=== PATIENT | male | born 1950 | race Caucasian/White ===

== ENCOUNTER → 2017-05-12 | Outpatient (CLI) | payer MEDICARE, OTHER ==
--- NOTE | 2017-05-12 14:30 | RAD ---
Right elbow, 3 views, 05/12/2017: History: Elbow pain No fracture or dislocation is identified. There is mild spurring arising from the coronoid process of the proximal ulna. No joint effusion is evident. IMPRESSION: No acute bony abnormality is detected.
== END | disposition home or self-care (01) ==
LOC: DXRADRC 10:40
PROVIDERS: ATTEND Physician Assistant Medical
DX: M25.521 Pain in right elbow (principal)
CPT/HCPCS: 73080

== ENCOUNTER → 2017-08-04 | Outpatient (CLI) | payer MEDICARE, OTHER ==
--- NOTE | 2017-08-04 09:12 | RAD ---
Chest, 2 views, 08/04/2017: History: Nonproductive cough and sinus congestion Comparison is made to a study from 12/10/2016. The heart size and pulmonary vascularity are normal. There are calcified nodes at the right hilum. No acute infiltrate is seen. There is no evidence of pleural fluid. Moderate scattered spurs are present in the spine. IMPRESSION: No acute cardiopulmonary abnormality is detected.
== END | disposition home or self-care (01) ==
LOC: DXRADRC 07:28
PROVIDERS: ATTEND Nurse Practitioner Family
DX: R09.89 Other specified symptoms and signs involving the circulatory and respiratory systems (principal); R05 Cough; M53.80 Other specified dorsopathies, site unspecified
CPT/HCPCS: 71020

== ENCOUNTER → 2018-10-18 | Outpatient (CLI) | payer MEDICARE, OTHER ==
--- NOTE | 2018-10-18 09:58 | RAD ---
EXAM: Paranasal sinus CT without contrast. HISTORY: Sinusitis. TECHNIQUE: Computed tomographic images the paranasal sinuses were obtained without contrast. *One or more of the following individualized dose reduction techniques were utilized for this examination: 1. Automated exposure control. 2. Adjustment of the mA and/or kV according to patient size. 3. Use of iterative reconstruction technique. COMPARISON: None. FINDINGS: There is minimal superior right greater than left maxillary sinus mucosal thickening and there is a tiny inferior right maxillary sinus mucous retention cyst. The ostiomeatal units are patent. There is no significant nasal septal deviation. There is no sinus air-fluid level or opacification. There is no sinus wall erosion or thickening. There is evidence of lens surgery. The mastoid air cells are clear. The visualized portions of the brain and calvarium are unremarkable. IMPRESSION: Minimal maxillary sinus mucosal thickening and tiny right maxillary sinus mucous retention cyst. Electronically signed by: Jessica Walker MD (10/18/2018 9:53 AM) [id number]
== END | disposition home or self-care (01) ==
LOC: CT 09:22
PROVIDERS: ATTEND Physician Assistant Medical
DX: R09.81 Nasal congestion (principal)
CPT/HCPCS: 70486

== ENCOUNTER → 2020-03-20 | Outpatient (CLI) | payer MEDICARE, OTHER ==
--- NOTE | 2020-03-20 08:00 | RAD ---
EXAM: Right long finger, 3 views. HISTORY: Blunt trauma. COMPARISON: None. FINDINGS: 3 views of the right long finger are obtained. There is a displaced fracture along the dorsal base of the third distal phalanx. There is surrounding soft tissue swelling. No radiodense foreign body is seen. There is slight deformity of the tuft of the second distal phalanx which may be developmental or the sequela of remote injury. There is a healed fifth metacarpal fracture. IMPRESSION: Displaced fracture along the dorsal base of the third distal phalanx. Electronically signed by: Jessica Walker MD (03/20/2020 7:57 AM) [id number]
== END | disposition home or self-care (01) ==
LOC: PMG 07:23
PROVIDERS: ATTEND Physician Assistant Medical
DX: S62.632A Displaced fracture of distal phalanx of right middle finger, initial encounter for closed fracture (principal); M79.89 Other specified soft tissue disorders; M20.001 Unspecified deformity of right finger(s); X58.XXXA Exposure to other specified factors, initial encounter; Y93.89 Activity, other specified; Y92.89 Other specified places as the place of occurrence of the external cause; Y99.8 Other external cause status
CPT/HCPCS: 73140